=== PATIENT | male | born 1980 | race Two or more races ===

== ENCOUNTER 2017-11-07 15:29 | Inpatient (IN) | payer MEDICAID ==
[~2017-11-07] VITALS: Ht 167.6 cm; Wt 67.8 kg
[2017-11-07] MEDS ORDERED: TRAM50TA4 PO (16:32)
[2017-11-07] MEDS ORDERED: GABA-533 PO (16:32)
[2017-11-07 16:35] VITALS: BP 107/70
[2017-11-07] MEDS: LORazepam 2 MG TABLET PO PRN (18:23)
[2017-11-07] MEDS ORDERED: ALBUTEROL SULFATE HFA 90 MCG/PUFF 8 GM INHALER IH PRN (19:00)
[2017-11-07] MEDS ORDERED: ONDANSETRON HCL 4 MG TABLET PO PRN (19:00)
[2017-11-07] MEDS ORDERED: IBUPROFEN 600 MG TABLET PO PRN (19:00)
[2017-11-07] MEDS ORDERED: PETROLATUM,WHITE 71 GM JELLY TP PRN (19:00)
[2017-11-07] MEDS ORDERED: MAG HYDROX/AL HYDROX/SIMETH ES 30 ML SUSPENSION UDCUP PO PRN (19:00)
[2017-11-07] MEDS ORDERED: LOPERAMIDE HCL 2 MG CAPSULE PO PRN (19:00)
[2017-11-07] MEDS ORDERED: CloNIDine HCL 0.1 MG TABLET PO PRN (19:00)
[2017-11-07] MEDS ORDERED: BENZOCAINE/MENTHOL LOZENGE MM PRN (19:00)
[2017-11-07] MEDS ORDERED: MAGNESIUM HYDROXIDE SUSPENSION 30 ML UDCUP PO PRN (19:00)
[2017-11-08 00:52] VITALS: BP 107/69
[2017-11-08] MEDS: DOCUSATE SODIUM 100 MG CAPSULE PO SCH (08:21)
[2017-11-08] MEDS: OMEPRAZOLE 20 MG CAPSULE PO SCH (08:21)
[2017-11-08] MEDS: HALOPERIDOL 5 MG TABLET PO PRN (08:21)
[2017-11-08] MEDS: NICOTINE 14 MG/24 HOUR PATCH TD SCH (08:21)
[2017-11-08] MEDS: BACITRACIN 28.4 GM OINTMENT TP SCH ×2 (08:23→16:07)
[2017-11-08 08:27] VITALS: BP 110/78
[2017-11-08 08:30] LABS: BASOPHILS # (AUTO) 0.02 K/uL (0.00-0.20); BASOPHILS % (AUTO) 0.4 % (0.0-2.0); EOSINOPHILS % (AUTO) 3.14 % (1.0-6.0); HEMATOCRIT 42.5 % (41-53); HEMOGLOBIN 14.2 g/dL (13.5-17.5); LYMPHOCYTES # (AUTO) 1.3 K/uL (1.0-4.8); LYMPHOCYTES % (AUTO) 20.1 % (22.0-44.0); MEAN CORPUSCULAR HEMOGLOBIN 31.5 pg (26.0-34.0); MEAN CORPUSCULAR HGB CONC 33.4 G/dL (31.0-37.0); MEAN CORPUSCULAR VOLUME 94 fL (80-100); MONOCYTES # (AUTO) 0.5 K/uL (0.1-1.0); MONOCYTES % (AUTO) 7.3 % (2.0-9.0); NEUTROPHILS # (AUTO) 4.5 K/uL (1.8-7.7); NEUTROPHILS % (AUTO) 69.1 % (40.0-70.0); PLATELET COUNT (AUTO) 262 K/uL (150-450); RED CELL DISTRIBUTION WIDTH 13.9 % (11.5-14.5)
[2017-11-08 08:43] LABS: HEMOGLOBIN A1C 5.2 % (4.5-6.2)
[2017-11-08] MEDS: ACETAMINOPHEN 325 MG TABLET PO PRN (08:55)
[2017-11-08 09:06] LABS: ALANINE AMINOTRANSFERASE 30 U/L (12-78); ALBUMIN 3.6 g/dL (3.4-5.0); ALKALINE PHOSPHATASE 130 U/L (46-116); ANION GAP 4 mmol/L (8-16); ASPARTATE AMINOTRANSFERASE 14 U/L (15-37); BILIRUBIN,TOTAL 0.4 mg/dL (0.1-1.0); CARBON DIOXIDE 32 mmol/L (22-29); CHLORIDE 108 mmol/L (98-107); CHOL/HDL RATIO 3.2 (4.2-7.3); CHOLESTEROL 180 mg/dL (131-200); CREATININE 1.04 mg/dL (0.60-1.30); FREE T4 (FREE THYROXINE) 0.93 ng/dL (0.76-1.46); GLOMERULAR FILTR. RATE CALC > 60 mL/min (>60); GLUCOSE,RANDOM 87 mg/dL (70-110); HDL CHOLESTEROL 57 mg/dL (40-60); LDL CHOL (CALC.) 106 mg/dL (0-130); POTASSIUM 4.4 mmol/L (3.5-5.1); SODIUM SERUM 144 mmol/L (136-145); THYROID STIMULATING HORMONE 0.41 uIU/mL (0.36-3.74); TOTAL PROTEIN, SERUM 7.2 g/dL (6.4-8.2); TRIGLYCERIDES 85 mg/dL (15-150); UREA NITROGEN, BLOOD 14 mg/dL (7-18)
[2017-11-08] MEDS: LORazepam 2 MG TABLET PO PRN ×2 (09:40→21:26)
[2017-11-08 16:00] VITALS: BP 105/60
[2017-11-08] MEDS: GABAPENTIN 400 MG CAPSULE PO SCH (16:22)
[2017-11-08] MEDS: ZOLPIDEM TARTRATE 10 MG TABLET PO PRN (21:26)
[2017-11-09] VITALS: BP 138/68
[2017-11-09 08:43] VITALS: BP 129/70
[2017-11-09] MEDS: NICOTINE 14 MG/24 HOUR PATCH TD SCH (08:52)
[2017-11-09] MEDS: DOCUSATE SODIUM 100 MG CAPSULE PO SCH (08:52)
[2017-11-09] MEDS: GABAPENTIN 400 MG CAPSULE PO SCH ×3 (08:52→16:00)
[2017-11-09] MEDS: OMEPRAZOLE 20 MG CAPSULE PO SCH (08:52)
[2017-11-09] MEDS: BACITRACIN 28.4 GM OINTMENT TP SCH ×2 (08:55→16:01)
[2017-11-09 09:41] VITALS: BP 125/73
[2017-11-09] MEDS: TraMADol HCL 50 MG TABLET PO PRN (09:41)
[2017-11-09] MEDS: LORazepam 2 MG TABLET PO PRN ×2 (09:41→13:46)
[2017-11-09] MEDS: RisperiDONE 1 MG TABLET PO SCH (16:01)
[2017-11-09] MEDS: HALOPERIDOL 5 MG TABLET PO PRN (16:01)
[2017-11-09 16:39] VITALS: BP 136/97
[2017-11-10 00:05] VITALS: BP 137/88
[2017-11-10] MEDS: TraMADol HCL 50 MG TABLET PO PRN ×2 (00:12→06:49)
[2017-11-10] MEDS: LORazepam 2 MG TABLET PO PRN ×2 (00:12→12:50)
[2017-11-10] MEDS: HALOPERIDOL 5 MG TABLET PO PRN (06:48)
[2017-11-10 08:00] VITALS: BP 102/61
[2017-11-10] MEDS: DOCUSATE SODIUM 100 MG CAPSULE PO SCH (08:49)
[2017-11-10] MEDS: GABAPENTIN 400 MG CAPSULE PO SCH ×3 (08:49→16:01)
[2017-11-10] MEDS: OMEPRAZOLE 20 MG CAPSULE PO SCH (08:49)
[2017-11-10] MEDS: RisperiDONE 1 MG TABLET PO SCH ×2 (08:49→16:01)
[2017-11-10] MEDS: NICOTINE 14 MG/24 HOUR PATCH TD SCH (08:49)
[2017-11-10] MEDS: BACITRACIN 28.4 GM OINTMENT TP SCH ×2 (08:53→16:01)
[2017-11-10 16:00] VITALS: BP 111/64
[2017-11-10] MEDS: ZOLPIDEM TARTRATE 10 MG TABLET PO PRN (20:45)
[2017-11-11 00:35] VITALS: BP 112/81
[2017-11-11 06:45] VITALS: BP_SYST 110
[2017-11-11] MEDS: TraMADol HCL 50 MG TABLET PO PRN ×2 (06:53→16:50)
[2017-11-11 08:35] VITALS: BP 128/87
[2017-11-11] MEDS: RisperiDONE 1 MG TABLET PO SCH ×2 (08:48→16:13)
[2017-11-11] MEDS: NICOTINE 14 MG/24 HOUR PATCH TD SCH (08:48)
[2017-11-11] MEDS: DOCUSATE SODIUM 100 MG CAPSULE PO SCH (08:48)
[2017-11-11] MEDS: OMEPRAZOLE 20 MG CAPSULE PO SCH (08:48)
[2017-11-11] MEDS: GABAPENTIN 400 MG CAPSULE PO SCH ×3 (08:48→16:13)
[2017-11-11] MEDS: BACITRACIN 28.4 GM OINTMENT TP SCH ×2 (08:49→16:13)
[2017-11-11] MEDS: HALOPERIDOL 5 MG TABLET PO PRN (10:34)
[2017-11-11 16:22] VITALS: BP 104/61
[2017-11-11 17:50] VITALS: BP 107/63
[2017-11-11] MEDS: ZOLPIDEM TARTRATE 10 MG TABLET PO PRN (21:08)
[2017-11-12 00:30] VITALS: BP 111/70
[2017-11-12 06:10] VITALS: BP 122/75
[2017-11-12] MEDS: TraMADol HCL 50 MG TABLET PO PRN ×2 (06:13→16:12)
[2017-11-12] MEDS: GABAPENTIN 400 MG CAPSULE PO SCH ×3 (08:18→16:02)
[2017-11-12] MEDS: OMEPRAZOLE 20 MG CAPSULE PO SCH (08:18)
[2017-11-12] MEDS: BACITRACIN 28.4 GM OINTMENT TP SCH ×2 (08:19→16:02)
[2017-11-12] MEDS: NICOTINE 14 MG/24 HOUR PATCH TD SCH (08:19)
[2017-11-12] MEDS: DOCUSATE SODIUM 100 MG CAPSULE PO SCH (08:19)
[2017-11-12] MEDS: RisperiDONE 1 MG TABLET PO SCH ×2 (08:19→16:02)
[2017-11-12 08:28] VITALS: BP 131/76
[2017-11-12] MEDS: LORazepam 2 MG TABLET PO PRN (10:44)
[2017-11-12 16:10] VITALS: BP 124/80
[2017-11-12] MEDS: ZOLPIDEM TARTRATE 10 MG TABLET PO PRN (20:20)
[2017-11-13 00:35] VITALS: BP 110/66
[2017-11-13] MEDS: TraMADol HCL 50 MG TABLET PO PRN ×2 (04:48→17:42)
[2017-11-13 04:49] VITALS: BP 123/88
[2017-11-13 08:00] VITALS: BP 136/84
[2017-11-13] MEDS: OMEPRAZOLE 20 MG CAPSULE PO SCH (08:19)
[2017-11-13] MEDS: DOCUSATE SODIUM 100 MG CAPSULE PO SCH (08:19)
[2017-11-13] MEDS: RisperiDONE 1 MG TABLET PO SCH ×2 (08:19→16:16)
[2017-11-13] MEDS: GABAPENTIN 400 MG CAPSULE PO SCH ×3 (08:19→16:16)
[2017-11-13] MEDS: BACITRACIN 28.4 GM OINTMENT TP SCH ×2 (08:20→17:01)
[2017-11-13] MEDS: NICOTINE 14 MG/24 HOUR PATCH TD SCH (08:20)
[2017-11-13 16:47] VITALS: BP 138/84
[2017-11-13 17:43] VITALS: BP 130/72
[2017-11-13] MEDS: LORazepam 2 MG TABLET PO PRN (18:22)
[2017-11-14 00:35] VITALS: BP 124/61
[2017-11-14 05:36] VITALS: BP 128/84
[2017-11-14] MEDS: TraMADol HCL 50 MG TABLET PO PRN (05:38)
[2017-11-14] MEDS: NICOTINE 14 MG/24 HOUR PATCH TD SCH (08:01)
[2017-11-14] MEDS: GABAPENTIN 400 MG CAPSULE PO SCH ×2 (08:01→12:52)
[2017-11-14] MEDS: OMEPRAZOLE 20 MG CAPSULE PO SCH (08:01)
[2017-11-14] MEDS: BACITRACIN 28.4 GM OINTMENT TP SCH (08:01)
[2017-11-14] MEDS: RisperiDONE 1 MG TABLET PO SCH (08:01)
[2017-11-14] MEDS: DOCUSATE SODIUM 100 MG CAPSULE PO SCH (08:01)
[2017-11-14 08:35] VITALS: BP 121/74
[2017-11-14] MEDS: ACETAMINOPHEN 325 MG TABLET PO PRN (09:49)
[2017-11-14] MEDS: LORazepam 2 MG TABLET PO PRN (10:27)
[2017-11-14] MEDS ORDERED: BACI30OI6 TP (12:28)
[2017-11-14] MEDS ORDERED: OMEP20 PO (12:28)
[2017-11-14] MEDS ORDERED: RISP1 PO (12:28)
== END 2017-11-14 14:45 | disposition home or self-care (01) | DRG 750 ==
LOC: B2S 15:59
PROVIDERS: ADMIT Psychiatry & Neurology Psychiatry; ATTEND Psychiatry & Neurology Psychiatry
DX: F25.9 Schizoaffective disorder, unspecified (principal); F17.200 Nicotine dependence, unspecified, uncomplicated; G89.29 Other chronic pain; K59.00 Constipation, unspecified; M54.9 Dorsalgia, unspecified; F14.90 Cocaine use, unspecified, uncomplicated; F12.90 Cannabis use, unspecified, uncomplicated; Z72.89 Other problems related to lifestyle; Z79.899 Other long term (current) drug therapy
CPT/HCPCS: 82306; 83036; 84439; 84443

== ENCOUNTER 2017-11-17 00:45 | Inpatient (IN) | payer MEDICAID ==
[~2017-11-17] VITALS: Ht 167.6 cm; Wt 69.9 kg
[~2017-11-17 00:45] MED LIST: BACI30OI6 TP; GABA-533 PO; OMEP20 PO; RISP1 PO
[2017-11-17] MEDS ORDERED: GABA-533 PO (00:52)
[2017-11-17] MEDS ORDERED: HALOPERIDOL 5 MG TABLET PO ONE (01:15)
[2017-11-17] MEDS ORDERED: LORazepam 2 MG TABLET PO ONE (01:15)
[2017-11-17] MEDS ORDERED: DiphenhydrAMINE HCL 25 MG CAPSULE PO ONE (01:15)
[2017-11-17 01:54] LABS: BASOPHILS # (AUTO) 0.02 K/uL (0.00-0.20); BASOPHILS % (AUTO) 0.2 % (0.0-2.0); EOSINOPHILS # (AUTO) 0.17 K/uL (0.00-0.70); EOSINOPHILS % (AUTO) 1.56 % (1.0-6.0); HEMOGLOBIN 14.6 g/dL (13.5-17.5); LYMPHOCYTES # (AUTO) 2.3 K/uL (1.0-4.8); LYMPHOCYTES % (AUTO) 20.7 % (22.0-44.0); MEAN CORPUSCULAR HEMOGLOBIN 31.2 pg (26.0-34.0); MEAN CORPUSCULAR HGB CONC 33.2 G/dL (31.0-37.0); MEAN CORPUSCULAR VOLUME 94 fL (80-100); MONOCYTES % (AUTO) 8.8 % (2.0-9.0); NEUTROPHILS # (AUTO) 7.6 K/uL (1.8-7.7); NEUTROPHILS % (AUTO) 68.7 % (40.0-70.0); PLATELET COUNT (AUTO) 319 K/uL (150-450); RED BLOOD CELL COUNT(AUTO) 4.69 MIL/uL (4.50-5.90); RED CELL DISTRIBUTION WIDTH 13.9 % (11.5-14.5)
[2017-11-17 02:04] LABS: ANION GAP 7 mmol/L (8-16); CARBON DIOXIDE 31 mmol/L (22-29); CHLORIDE 100 mmol/L (98-107); CREATININE 1.17 mg/dL (0.60-1.30); GLOMERULAR FILTR. RATE CALC > 60 mL/min (>60); GLUCOSE,RANDOM 109 mg/dL (70-110); POTASSIUM 3.4 mmol/L (3.5-5.1); SODIUM SERUM 138 mmol/L (136-145); UREA NITROGEN, BLOOD 24 mg/dL (7-18)
[2017-11-17 02:10] LABS: ALANINE AMINOTRANSFERASE 42 U/L (12-78); ALKALINE PHOSPHATASE 137 U/L (46-116); ASPARTATE AMINOTRANSFERASE 24 U/L (15-37); BILIRUBIN,TOTAL 0.6 mg/dL (0.1-1.0)
[2017-11-17] MEDS ORDERED: POTASSIUM CHLORIDE 10% 40 MEQ/30 ML LIQUID UDCUP PO ONE (02:15)
[2017-11-17 06:59] LABS: CHOL/HDL RATIO 3.5 (4.2-7.3); CHOLESTEROL 191 mg/dL (131-200); HDL CHOLESTEROL 55 mg/dL (40-60); LDL CHOL (CALC.) 115 mg/dL (0-130); TRIGLYCERIDES 105 mg/dL (15-150)
[2017-11-17 13:37] LABS: AMPHET/METH SCREEN,URINE POSITIVE (NEGATIVE); BARBITURATE SCREEN, URINE NEGATIVE (NEGATIVE); BENZODIAZEPINES SCREEN,URINE NEGATIVE (NEGATIVE); CANNABINOID SCREEN,URINE NEGATIVE (NEGATIVE); COCAINE SCREEN,URINE NEGATIVE (NEGATIVE); METHADONE SCREEN, URINE NEGATIVE (NEGATIVE); OPIATE SCREEN,URINE NEGATIVE (NEGATIVE)
[2017-11-17 13:38] LABS: PHENCYCLIDINE SCREEN,URINE NEGATIVE (NEGATIVE)
[2017-11-17] MEDS ORDERED: DiphenhydrAMINE HCL 50 MG/ML VIAL IM ONE (14:15)
[2017-11-17] MEDS ORDERED: LORazepam 2 MG/ML VIAL IM ONE (14:15)
[2017-11-17] MEDS ORDERED: HALOPERIDOL LACTATE 5 MG/ML VIAL IM ONE (14:15)
[2017-11-17 15:18] VITALS: BP 107/64
[2017-11-17 19:33] VITALS: BP 107/57
[2017-11-17] MEDS ORDERED: INFLUENZA VIRUS VACCINE QVS 2017-18 (3YR+)/PF 60 MCG/0.5 ML SYRINGE IM ONE (20:30)
[2017-11-18] MEDS ORDERED: IBUPROFEN 600 MG TABLET PO PRN ×2 (08:00→16:00)
[2017-11-18] MEDS ORDERED: BACITRACIN 28.4 GM OINTMENT TP PRN (08:00)
[2017-11-18] MEDS ORDERED: LOPERAMIDE HCL 2 MG CAPSULE PO PRN (08:00)
[2017-11-18] MEDS ORDERED: MAG HYDROX/AL HYDROX/SIMETH ES 30 ML SUSPENSION UDCUP PO PRN (08:00)
[2017-11-18] MEDS ORDERED: MAGNESIUM HYDROXIDE SUSPENSION 30 ML UDCUP PO PRN (08:00)
[2017-11-18] MEDS ORDERED: BENZOCAINE/MENTHOL LOZENGE MM PRN (08:00)
[2017-11-18] MEDS ORDERED: POTASSIUM CHLORIDE 20 MEQ ER TABLET PO ONE (08:00)
[2017-11-18] MEDS ORDERED: CloNIDine HCL 0.1 MG TABLET PO PRN (08:00)
[2017-11-18] MEDS ORDERED: ALBUTEROL SULFATE HFA 90 MCG/PUFF 8 GM INHALER IH PRN (08:00)
[2017-11-18] MEDS ORDERED: ONDANSETRON HCL 4 MG TABLET PO PRN (08:00)
[2017-11-18] MEDS ORDERED: PETROLATUM,WHITE 71 GM JELLY TP PRN (08:00)
[2017-11-18 08:10] VITALS: BP 102/61
[2017-11-18] MEDS: GABAPENTIN 400 MG CAPSULE PO SCH ×3 (08:43→20:10)
[2017-11-18] MEDS: ACETAMINOPHEN 325 MG TABLET PO PRN (15:59)
[2017-11-18 20:10] VITALS: BP 98/63
[2017-11-18] MEDS: ZOLPIDEM TARTRATE 10 MG TABLET PO PRN (23:48)
[2017-11-19 05:22] VITALS: BP 102/68
[2017-11-19 07:48] VITALS: BP 102/57
[2017-11-19] MEDS: GABAPENTIN 400 MG CAPSULE PO SCH ×4 (08:25→17:09)
[2017-11-19] MEDS: LORazepam 2 MG TABLET PO PRN ×2 (08:36→14:45)
[2017-11-19] MEDS: HALOPERIDOL 5 MG TABLET PO PRN ×2 (08:36→14:45)
[2017-11-19 11:40] VITALS: BP 103/61
[2017-11-19 17:10] VITALS: BP 121/76
[2017-11-19 17:24] VITALS: BP 121/76
[2017-11-19] MEDS: ZOLPIDEM TARTRATE 10 MG TABLET PO PRN (20:41)
[2017-11-20 00:36] VITALS: BP 110/81
[2017-11-20] MEDS: HALOPERIDOL 5 MG TABLET PO PRN ×2 (03:09→18:40)
[2017-11-20] MEDS: LORazepam 2 MG TABLET PO PRN ×2 (03:09→14:58)
[2017-11-20 08:34] VITALS: BP 120/67
[2017-11-20] MEDS: GABAPENTIN 400 MG CAPSULE PO SCH ×3 (08:58→16:26)
[2017-11-20] MEDS: NICOTINE 21 MG/24 HOUR PATCH TD SCH (08:59)
[2017-11-20] MEDS ORDERED: KETOROLAC TROMETHAMINE 30 MG/ML VIAL IM ONE (14:00)
[2017-11-20] MEDS: SULFAMETHOX/TRIMETH DS 800-160 MG/TABLET PO SCH (14:25)
[2017-11-20] MEDS: ACETAMINOPHEN 325 MG TABLET PO PRN (14:26)
[2017-11-20 16:43] VITALS: BP 122/84
[2017-11-20] MEDS: ZOLPIDEM TARTRATE 10 MG TABLET PO PRN (20:36)
[2017-11-20 22:15] VITALS: BP 133/85
[2017-11-20] MEDS ORDERED: HYDROCODONE/ACETAMINOPHEN 5-325 MG TABLET PO ONE (22:15)
[2017-11-21] VITALS (7 sets, daily range): BP systolic 107–118; BP diastolic 67–82
[2017-11-21] MEDS: ACETAMINOPHEN 325 MG TABLET PO PRN ×4 (00:45→20:13)
[2017-11-21] MEDS: LORazepam 2 MG TABLET PO PRN ×2 (00:45→10:28)
[2017-11-21] MEDS: SULFAMETHOX/TRIMETH DS 800-160 MG/TABLET PO SCH (08:37)
[2017-11-21] MEDS: GABAPENTIN 400 MG CAPSULE PO SCH ×3 (08:37→17:10)
[2017-11-21] MEDS: NICOTINE 21 MG/24 HOUR PATCH TD SCH (08:40)
[2017-11-21] MEDS: TraMADol HCL 50 MG TABLET PO PRN (11:42)
[2017-11-21] MEDS: HALOPERIDOL 5 MG TABLET PO PRN (14:20)
[2017-11-21] MEDS: ZOLPIDEM TARTRATE 10 MG TABLET PO PRN (22:01)
[2017-11-22 00:19] VITALS: BP 135/88
[2017-11-22] MEDS: LORazepam 2 MG TABLET PO PRN ×2 (00:25→20:15)
[2017-11-22] MEDS: TraMADol HCL 50 MG TABLET PO PRN ×2 (00:25→13:08)
[2017-11-22 03:40] VITALS: BP 118/65
[2017-11-22] MEDS: ACETAMINOPHEN 325 MG TABLET PO PRN ×2 (03:46→09:04)
[2017-11-22 08:40] VITALS: BP 115/73
[2017-11-22] MEDS: NICOTINE 21 MG/24 HOUR PATCH TD SCH (09:00)
[2017-11-22] MEDS: SULFAMETHOX/TRIMETH DS 800-160 MG/TABLET PO SCH (09:03)
[2017-11-22] MEDS: GABAPENTIN 400 MG CAPSULE PO SCH ×3 (09:03→16:07)
[2017-11-22] MEDS ORDERED: SULF1TAB42 PO (10:35)
[2017-11-22 16:12] VITALS: BP 113/65
[2017-11-22] MEDS: HALOPERIDOL 5 MG TABLET PO PRN (16:45)
[2017-11-22] MEDS: ZOLPIDEM TARTRATE 10 MG TABLET PO PRN (21:19)
[2017-11-23 03:19] VITALS: BP 111/71
[2017-11-23] MEDS: LORazepam 2 MG TABLET PO PRN (03:25)
[2017-11-23] MEDS: TraMADol HCL 50 MG TABLET PO PRN (05:20)
[2017-11-23 08:12] VITALS: BP 122/73
[2017-11-23] MEDS: NICOTINE 21 MG/24 HOUR PATCH TD SCH (09:00)
[2017-11-23] MEDS: SULFAMETHOX/TRIMETH DS 800-160 MG/TABLET PO SCH (09:17)
[2017-11-23] MEDS: GABAPENTIN 400 MG CAPSULE PO SCH (09:17)
== END 2017-11-23 11:20 | disposition home or self-care (01) | DRG 750 ==
LOC: EMS 00:47 → AHU 13:53 → B2S 11-19 16:06
PROVIDERS: ADMIT Psychiatry & Neurology Psychiatry; ATTEND Psychiatry & Neurology Psychiatry
DX: F25.9 Schizoaffective disorder, unspecified (principal); R45.851 Suicidal ideations; Z59.0 Homelessness; F32.9 Major depressive disorder, single episode, unspecified; F17.210 Nicotine dependence, cigarettes, uncomplicated; E87.6 Hypokalemia; G89.29 Other chronic pain; M54.9 Dorsalgia, unspecified; F15.10 Other stimulant abuse, uncomplicated; K21.9 Gastro-esophageal reflux disease without esophagitis; K59.00 Constipation, unspecified; G47.00 Insomnia, unspecified; Z79.899 Other long term (current) drug therapy
CPT/HCPCS: 84132; 87081; 96372; 99285; G0480; J1200; J1630; J2060

== ENCOUNTER 2017-11-22 10:24 | Emergency (ER) | payer MEDICAID ==
[~2017-11-22] VITALS: Ht 167.6 cm; Wt 72.7 kg
[~2017-11-22 10:24] MED LIST changes: -BACI30OI6 TP; -OMEP20 PO; -RISP1 PO
[2017-11-22] MEDS ORDERED: SULF1TAB42 PO (10:35)
[2017-11-22] MEDS ORDERED: CEPHALEXIN MONOHYDRATE 500 MG CAPSULE PO ONE (11:00)
[2017-11-22] MEDS ORDERED: LIDOCAINE HCL 1%/EPI 1:200,000/PF 10 ML VIAL INJ ONE (11:00)
[2017-11-22] MEDS ORDERED: SULFAMETHOX/TRIMETH DS 800-160 MG/TABLET PO ONE (11:00)
[2017-11-22] MEDS ORDERED: HYDROCODONE/ACETAMINOPHEN 5-325 MG TABLET PO ONE (11:00)
[2017-11-22] MEDS ORDERED: LIDOCAINE HCL 1%/EPI 1:200,000/PF 30 ML VIAL INJ ONE (11:15)
[2017-11-22 11:56] VITALS: BP 120/77
== END 2017-11-22 12:43 | disposition home or self-care (01) ==
LOC: EMS 10:25
DX: L02.413 Cutaneous abscess of right upper limb (principal); M79.89 Other specified soft tissue disorders; F19.10 Other psychoactive substance abuse, uncomplicated; F17.210 Nicotine dependence, cigarettes, uncomplicated; Z88.6 Allergy status to analgesic agent
CPT/HCPCS: 10060; 99284; 99406; J3490

== ENCOUNTER 2017-12-08 23:38 | Emergency (ER) | payer MEDICAID ==
[~2017-12-08] VITALS: Ht 165.1 cm; Wt 70.9 kg
[~2017-12-08 23:38] MED LIST changes: +SULF1TAB42 PO
[2017-12-09 01:16] LABS: BASOPHILS % (AUTO) 0.4 % (0.0-2.0); EOSINOPHILS % (AUTO) 2.8 % (1.0-6.0); HEMATOCRIT 40.5 % (41-53); LYMPHOCYTES # (AUTO) 2.5 K/uL (1.0-4.8); LYMPHOCYTES % (AUTO) 31.9 % (22.0-44.0); MEAN CORPUSCULAR HEMOGLOBIN 31.1 pg (26.0-34.0); MEAN CORPUSCULAR HGB CONC 34.7 G/dL (31.0-37.0); MEAN CORPUSCULAR VOLUME 90 fL (80-100); MONOCYTES # (AUTO) 0.6 K/uL (0.1-1.0); MONOCYTES % (AUTO) 8.1 % (2.0-9.0); NEUTROPHILS # (AUTO) 4.4 K/uL (1.8-7.7); NEUTROPHILS % (AUTO) 56.8 % (40.0-70.0); PLATELET COUNT (AUTO) 327 K/uL (150-450); RED BLOOD CELL COUNT(AUTO) 4.51 MIL/uL (4.50-5.90)
[2017-12-09 01:28] LABS: ANION GAP 3 mmol/L (8-16); CALCIUM, TOTAL 8.8 mg/dL (8.8-10.5); CARBON DIOXIDE 36 mmol/L (22-29); CHLORIDE 106 mmol/L (98-107); CREATININE 0.96 mg/dL (0.60-1.30); GLOMERULAR FILTR. RATE CALC > 60 mL/min (>60); GLUCOSE,RANDOM 75 mg/dL (70-110); POTASSIUM 3.5 mmol/L (3.5-5.1); SODIUM SERUM 145 mmol/L (136-145); UREA NITROGEN, BLOOD 12 mg/dL (7-18)
[2017-12-09 01:34] LABS: ALANINE AMINOTRANSFERASE 22 U/L (12-78); ALBUMIN 3.8 g/dL (3.4-5.0); ALKALINE PHOSPHATASE 124 U/L (46-116); ASPARTATE AMINOTRANSFERASE 14 U/L (15-37); BILIRUBIN,TOTAL 0.2 mg/dL (0.1-1.0); TOTAL PROTEIN, SERUM 7.6 g/dL (6.4-8.2)
[2017-12-09 03:55] VITALS: BP 129/89
== END 2017-12-09 03:56 | disposition home or self-care (01) ==
LOC: EMS 23:39
DX: F32.9 Major depressive disorder, single episode, unspecified (principal); F41.9 Anxiety disorder, unspecified; F20.9 Schizophrenia, unspecified; F17.210 Nicotine dependence, cigarettes, uncomplicated; Z88.6 Allergy status to analgesic agent
CPT/HCPCS: 36415; 80053; 85025; 99284; 99406; G0480